=== PATIENT | male | born 1940 | race Asian ===

== ENCOUNTER 2021-09-12 14:02 | Emergency (ER) | payer OTHER ==
[~2021-09-12] VITALS: Ht 160 cm; Wt 73.9 kg
[2021-09-12 14:20] VITALS: BP 132/60
== END 2021-09-12 15:14 | disposition left against medical advice (07) ==
LOC: ER 14:02
DX: S09.8XXA Other specified injuries of head, initial encounter (principal); G44.309 Post-traumatic headache, unspecified, not intractable; E78.5 Hyperlipidemia, unspecified; I10 Essential (primary) hypertension; W18.39XA Other fall on same level, initial encounter; Y93.89 Activity, other specified; Y92.89 Other specified places as the place of occurrence of the external cause; Y99.8 Other external cause status
CPT/HCPCS: 70450; 71045